=== PATIENT | male | born 1975 | race Caucasian/White ===

== ENCOUNTER 2018-09-14 08:05 | Emergency (ER) | payer OTHER ==
[2018-09-14 08:32] LABS: URINE BLOOD (Dip) POC 3+ (NEGATIVE); URINE GLUCOSE (Dip) POC Negative (NEGATIVE); URINE KETONES (Dip) POC Negative (NEGATIVE); URINE LEUKOCYTE EST (Dip) POC 3+ (NEGATIVE); URINE NITRITE (Dip) POC Negative (NEGATIVE); URINE TOTAL PROTEIN POC Negative (NEGATIVE)
== END 2018-09-14 08:57 | disposition home or self-care (01) ==
LOC: FTE 08:05
DX: N39.0 Urinary tract infection, site not specified (principal)
CPT/HCPCS: 81003; 87086; 87591; 99283